=== PATIENT | female | born 1975 | race African-American/Black ===

== ENCOUNTER → 2020-04-28 | Day surgery (SDC) | payer BC ==
[~2020-04-28] VITALS: Ht 165.1 cm; Wt 150.6 kg
[~2020-04-28] MED LIST: FEXOFENADINE H180 MG PO; FUROSEMIDE40 MG PO; GABAPENTIN400 MG PO; LIDOCAINE HCL 2% LOCAL INJ 5 ML SDV VIAL INJ ONE; LIPITOR20 MG PO; MELOXICAM15 MG PO; METFORMIN HCL500 MG PO; METHOCARBAMOL500 MG PO; NOVOLOG100 UNIT/1 TD; PIOGLITAZONE HC45 MG PO; PROPOFOL IV EMULSION 10 MG/ML 20 ML VIAL ONE
--- NOTE | 2020-04-28 07:56 | Operative Report ---
DATE OF PROCEDURE: 04/28/2020 SURGEON: Job Zaragoza MD PREOPERATIVE DIAGNOSIS: Chronic gastroesophageal reflux disease. POSTOPERATIVE DIAGNOSES: 1. Moderate hiatal hernia. 2. Distal esophagitis. 3. Chronic gastroesophageal reflux disease. PREOPERATIVE INDICATION: Assess for upper GI disease. PROCEDURE: EGD with distal esophageal biopsy (CPT 99339). ANESTHESIA: Moderate sedation with IV propofol. ASSISTANTS: None. FLUIDS: As per Anesthesia. ESTIMATED BLOOD LOSS: Minimal. DRAINS: None. COMPLICATIONS: None. SPECIMENS: Distal esophageal biopsy x1. GRAFTS: None. FINDINGS: 1. Small to moderate size hiatal hernia. 2. Distal esophagitis at the GE junction. PROCEDURE IN DETAIL: The patient was brought to the endoscopy suite and sedated with IV propofol. A preprocedure pause performed. Adult sized endoscope was introduced to the oropharynx and guided to the 2nd portion of the duodenum. Findings were as noted above. Prior to removing the endoscope, the stomach was desufflated. The patient tolerated the procedure well. Type of wound is type 1, clean. All surgical counts were correct. Job Zaragoza MD [facility] /[id number]
[2020-04-28 08:10] VITALS: BP 107/58
== END | disposition home or self-care (01) ==
LOC: ENDO 05:44
PROVIDERS: ATTEND Surgery
DX: K21.00 Gastro-esophageal reflux disease with esophagitis, without bleeding (principal); K44.9 Diaphragmatic hernia without obstruction or gangrene; I45.10 Unspecified right bundle-branch block; M47.9 Spondylosis, unspecified; J45.909 Unspecified asthma, uncomplicated; I10 Essential (primary) hypertension; E78.5 Hyperlipidemia, unspecified; E11.9 Type 2 diabetes mellitus without complications; E66.01 Morbid (severe) obesity due to excess calories; M48.061 Spinal stenosis, lumbar region without neurogenic claudication; S84.80 Injury of other nerves at lower leg level; M79.89 Other specified soft tissue disorders; X58.XXXA Exposure to other specified factors, initial encounter; Z01.810 Encounter for preprocedural cardiovascular examination; Z01.812 Encounter for preprocedural laboratory examination; Z20.828 Contact with and (suspected) exposure to other viral communicable diseases; Z79.4 Long term (current) use of insulin; Z68.43 Body mass index [BMI] 50.0-59.9, adult
CPT/HCPCS: 36415; 43239; 81025; 82948; 88305; 93005; J2001; J2704; U0002